=== PATIENT | female | born 1950 | race Caucasian/White ===

== ENCOUNTER → 2018-07-13 12:44 | Outpatient (CLI) | payer MEDICARE, OTHER, SELFPAY | PROVIDERS: Visit Provider Physician Assistant Medical | DX: R07.89 Other chest pain (principal) ==

== ENCOUNTER → 2018-07-15 10:34 | Outpatient (CLI) | payer MEDICARE, OTHER, SELFPAY ==
--- NOTE | 2018-07-15 11:48 | PM.TREADMILL ---
Cardiac Stress Test Report Referral & Results Date Patient Seen: 07/15/18 Time Patient Seen: 11:48 Requesting provider: Rosa Boucher Indication: Chest pain Rest ECG: Unremarkable Procedure Note: Today following both written and verbal informed consent the patient was exercised according to a standard Barrera protocol patient went for a total of 6 min 8 sec achieving a maximum heart rate of 150s (difficult to ascertain because of significant motion artifact during exercise portion of test), maximum systolic blood pressure of 180 for. This is approximately 7.0 METS. Exercise was terminated at this point because of inability the patient to continue. Patient was also given Cardiolite through a previously started Hep-Lock IV by the nuclear auxiliary operator approximately 1 minute prior to the cessation of exercise. With exercise there was a tremendous amount of motion artifact making it extremely difficult to follow even patient's rhythm let alone any subtle ST segment changes. Medially upon cessation of motion there is no evidence of ST segment change when the ECG settled down. Functional aerobic impairment rated about minus 5-10% on the sedentary scale or better than average Occasional PACs and some sinus arrhythmia were noted in recovery Impression: No evidence of ischemia based on usual criteria although motion artifact encountered makes use of the ECG very difficult. Perfusion imaging to be reported separately. Please note: Actual ECG tracings can be found in the PACS system.
--- NOTE | 2018-07-19 13:16 | DI.NM.S_ITS ---
DATE OF SERVICE: 07/15/2018 PROCEDURE: Exercise perfusion study. INDICATIONS: Exertional chest pain, hyperlipidemia, very strong family history of coronary artery disease, sleep apnea, et cetera. RADIOPHARMACEUTICAL: 27.2 mCi technetium-99m Myoview IV was injected at stress, and 24.8 mCi technetium-99m Myoview IV was injected at rest. CARDIAC STRESS: Patient underwent exercise perfusion study under the supervision of an attending staff. She walked on Barrera protocol for 6 minutes 8 seconds and achieved 87% of target heart rate and normal blood pressure response. Baseline rhythm was sinus with some sinus arrhythmias. During stress, there was profound EKG artifact. However, in immediate recovery, there were no obvious significant ischemic changes. There were intermittent PACs and PVCs seen in recovery. No sustained ventricular or supraventricular arrhythmias. Test was discontinued as she was unable to walk on treadmill. Functional aerobic impairment 0% on active scale. RAW DATA: There was increased subdiaphragmatic activity. Breast shadow was seen as well. GATED STUDY: Resting LV ejection fraction 68% and stress LV ejection fraction 64% with decreased perfusion in inferior wall. TID ratio was 0.83, which was within normal limits. Resting end-diastolic volume was 106 mL. Resting heart ratio was 0.4, which is within normal limits. MYOCARDIAL PERFUSION SCAN: Stress supine, resting supine, and stress prone images were compared to each other. Resting supine images revealed minimally decreased perfusion of distal anterior wall which got resolved during prone images, suggestive of breast tissue attenuation artifact. However, during stress supine and stress prone images, there was hcypo-gl-sajkyuiw-sized reversible perfusion defect seen involving base to mid inferior wall extending into the distal inferolateral wall, consistent with reversible ischemia. CONCLUSION: This is an abnormal myocardial perfusion study, consistent with rjfcd-az-ujjfvxye-sized reversible ischemia of base-to-mid inferior wall extending into the distal inferolateral wall. Resting LV ejection fraction 68% and stress LV ejection fraction 64%. findings were reported to ordering team. Teresa Murillo - FUND CONTROLLER/fn/kv doc#: [id number]/job#: [id number] dd: 07/19/2018 12:48:00 dt: 07/19/2018 13:06:00 DICTATING MD/COPIES TO: Alan Wing MD ; LAZARUS Rees COPIES MNE: ANASTACIO ; GERRY
== END ==
PROVIDERS: Visit Provider Physician Assistant Medical
DX: R07.89 Other chest pain (principal)
CPT/HCPCS: 78452; 93016; 93017; 93018; A9502

== ENCOUNTER → 2018-08-26 07:42 | Outpatient (CLI) | payer MEDICARE, OTHER, SELFPAY ==
--- NOTE | 2018-08-26 | DI.MG.S_ITS ---
BILATERAL DIGITAL SCREENING MAMMOGRAM 3D/2D WITH CAD: 08/26/2018 Comparison is made to exams dated: 11/04/2016 mammogram, 01/06/2015 mammogram, and 12/23/2012 mammogram - [facility]. The tissue of both breasts is predominantly fatty. Current study was also evaluated with a Computer Aided Detection (CAD) system. No significant masses, calcifications, or other findings are seen in either breast. There has been no significant interval change. IMPRESSION: NEGATIVE There is no mammographic evidence of malignancy. A 1 year screening mammogram is recommended. This exam was interpreted at Station ID: [id number]. NOTE: For mammograms, a report in lay terms will be sent to the patient. Approximately 15% of breast malignancies will not be visualized mammographically. In the management of a palpable breast mass, a negative mammogram must not discourage biopsy of a clinically suspicious lesion. Electronically Signed By: Radha edwards/césar:08/26/2018 11:47:33 letter sent: Normal Exam ACR BI-RADS Category 1: Negative 3341F
== END ==
PROVIDERS: PCP Physician Assistant Medical; Visit Provider Physician Assistant Medical
DX: Z12.31 Encounter for screening mammogram for malignant neoplasm of breast (principal)
CPT/HCPCS: 77063; 77067

== ENCOUNTER → 2019-08-04 12:28 | Outpatient (CLI) | payer MEDICARE, OTHER, SELFPAY | PROVIDERS: PCP Physician Assistant Medical | DX: Z23 Encounter for immunization (principal) | CPT/HCPCS: 90471; 90686 ==

== ENCOUNTER → 2020-04-05 12:55 | Outpatient (CLI) | payer MEDICARE, OTHER, SELFPAY ==
--- NOTE | 2020-04-05 | DI.MG.S_ITS ---
BILATERAL DIGITAL SCREENING MAMMOGRAM 3D/2D WITH CAD: 04/05/2020 CLINICAL: Routine screening. Comparison is made to exams dated: 08/26/2018 mammogram - [facility], 11/04/2016 mammogram, 01/06/2015 mammogram, and 12/23/2012 mammogram - [facility]. The tissue of both breasts is predominantly fatty. Current study was also evaluated with a Computer Aided Detection (CAD) system. No significant masses, calcifications, or other findings are seen in either breast. There has been no significant interval change. IMPRESSION: NEGATIVE There is no mammographic evidence of malignancy. A 1 year screening mammogram is recommended. This exam was interpreted at Station ID: [id number]. NOTE: For mammograms, a report in lay terms will be sent to the patient. Approximately 15% of breast malignancies will not be visualized mammographically. In the management of a palpable breast mass, a negative mammogram must not discourage biopsy of a clinically suspicious lesion. Electronically Signed By: Shawn hansen/césar:04/05/2020 14:10:15 letter sent: Normal Exam ACR BI-RADS Category 1: Negative 3341F
== END ==
PROVIDERS: PCP Physician Assistant Medical; Referring Provider Physician Assistant Medical; Visit Provider Physician Assistant Medical
DX: Z12.31 Encounter for screening mammogram for malignant neoplasm of breast (principal)
CPT/HCPCS: 77063; 77067

== ENCOUNTER → 2021-10-10 11:14 | Outpatient (CLI) | payer MEDICARE, OTHER, SELFPAY ==
--- NOTE | 2021-10-10 11:16 | DI.MG.S_ITS ---
BILATERAL DIGITAL SCREENING MAMMOGRAM 3D/2D WITH CAD: 10/10/2021 CLINICAL: Routine screening. Comparison is made to exams dated: 04/05/2020 mammogram, 08/26/2018 mammogram - [facility], and 11/04/2016 mammogram - [facility]. There are scattered fibroglandular elements in both breasts. Current study was also evaluated with a Computer Aided Detection (CAD) system. No significant masses, calcifications, or other findings are seen in either breast. There has been no significant interval change. IMPRESSION: NEGATIVE There is no mammographic evidence of malignancy. A 1 year screening mammogram is recommended. This exam was interpreted at Station ID: [id number]. NOTE: For mammograms, a report in lay terms will be sent to the patient. Approximately 15% of breast malignancies will not be visualized mammographically. In the management of a palpable breast mass, a negative mammogram must not discourage biopsy of a clinically suspicious lesion. Electronically Signed By: Joni adrian/césar:10/10/2021 11:54:03 letter sent: Normal Exam ACR BI-RADS Category 1: Negative 3341F
== END ==
PROVIDERS: PCP Physician Assistant Medical; Referring Provider Physician Assistant Medical; Visit Provider Physician Assistant Medical
DX: Z12.31 Encounter for screening mammogram for malignant neoplasm of breast (principal)
CPT/HCPCS: 77063; 77067

== ENCOUNTER → 2022-11-07 09:10 | Outpatient (CLI) | payer MEDICARE, OTHER, SELFPAY ==
--- NOTE | 2022-11-07 | DI.MG.S_ITS ---
BILATERAL DIGITAL SCREENING MAMMOGRAM 3D/2D WITH CAD: 11/07/2022 CLINICAL: Routine screening. Comparison is made to exams dated: 10/10/2021 mammogram, 04/05/2020 mammogram, 08/26/2018 mammogram - [facility], and 11/04/2016 mammogram - [facility]. There are scattered areas of fibroglandular density in both breasts (category b / 25%-50% glandular tissue). Current study was also evaluated with a Computer Aided Detection (CAD) system. No significant masses, calcifications, or other findings are seen in either breast. There has been no significant interval change. IMPRESSION: NEGATIVE There is no mammographic evidence of malignancy. A 1 year screening mammogram is recommended. Based on the Tyrer Cuzick model (a risk assessment model) the patient's lifetime risk is 3.3% and her 10 year risk is 2.7%. According to the ACR, ACS, and NCCN guidelines, an annual breast MRI exam along with mammogram is recommended if the patient's lifetime risk is 20% or greater. This exam was interpreted at Station ID: [id number]. NOTE: For mammograms, a report in lay terms will be sent to the patient. Approximately 15% of breast malignancies will not be visualized mammographically. In the management of a palpable breast mass, a negative mammogram must not discourage biopsy of a clinically suspicious lesion. Electronically Signed By: Shawn hansen/césar:11/11/2022 07:59:24 letter sent: Normal Exam ACR BI-RADS Category 1: Negative 3341F
== END ==
PROVIDERS: PCP Physician Assistant Medical; Referring Provider Physician Assistant Medical; Visit Provider Physician Assistant Medical
DX: Z12.31 Encounter for screening mammogram for malignant neoplasm of breast (principal)
CPT/HCPCS: 77063; 77067

== ENCOUNTER → 2023-07-23 09:25 | Outpatient (CLI) | payer MEDICARE, OTHER, SELFPAY ==
[2023-07-23 10:43] LABS: Add Manual Diff / Slide Review NO; Basophils Absolute Auto 0 /uL (0-100); Basophils Percent Auto 0.4 % (0-2); Eosinophils Absolute Auto 100 /uL (0-450); Eosinophils Percent Auto 2.2 % (2-4); Hematocrit 39.7 % (36-46); Hemoglobin 13.9 g/dL (12.0-16.0); Lymphocytes Absolute Auto 1600 /uL (1100-4500); Lymphocytes Percent Auto 29.3 % (25-40); Mean Corpuscular Hemoglobin 32.1 PG (26-34); Mean Corpuscular Volume 91.9 fL (80-100); Monocytes Absolute Auto 500 /uL (0-900); Monocytes Percent Auto 9.9 % (3-14); Neutrophils Absolute Auto 3200 /uL (1500-7000); Neutrophils Percent Auto 58.2 % (50-75); Platelet Count 367 X10^3/uL (150-400); Red Blood Cell Count 4.32 X10^6/uL (4.0-5.2); Red Cell Distribution Width 13.7 % (11.6-14.8); White Blood Cell Count 5.4 X10^3/uL (4.5-11.0)
[2023-07-23 10:48] LABS: BUN Creatinine Ratio 16.1 (6-22); Blood Urea Nitrogen 14 mg/dL (7-17); Calcium 9.8 mg/dL (8.4-10.2); Carbon Dioxide 24 mmol/L (22-32); Chloride 106 mmol/L (98-107); Estimated Glomerular Filt Rate > 60 mL/min (>60); Glucose 111 mg/dL (80-110); HEMOLYSIS < 15 (0-50); Potassium 4.1 mmol/L (3.4-5.1); Sodium 138 mmol/L (137-145)
[2023-07-23 11:48] LABS: Appearance Urine UA CLOUDY; Bilirubin Urine UA NEGATIVE (NEGATIVE); Color Urine UA YELLOW; Glucose Urine UA NEGATIVE (Negative); Ketones Urine UA TRACE (NEGATIVE); Leukocyte Esterase Urine UA NEGATIVE (NEGATIVE); Nitrite Urine UA NEGATIVE (Negative); Occult Blood Urine UA NEGATIVE (Negative); Protein Urine UA NEGATIVE (Negative); Specific Gravity Urine UA >=1.030 (1.000-1.035); Urobilinogen Urine UA 0.2 E.U./dL (0.2)
[2023-07-23 12:16] LABS: pH Urine UA 5.5 (4.5-8.0)
[2023-07-23 12:23] LABS: Amorphous Sediment Urine 3+; Bacteria Urine None Seen; Calcium Oxalate Crystals Urine Few; Culture Indicated Urine Cult Not Indicated; RBC Urine None Seen (0-5/HPF); Squamous Epithelial Cell Urine 0-1 /HPF (0-5/HPF); WBC Urine None Seen (0-5/HPF)
== END ==
PROVIDERS: PCP Physician Assistant Medical; Referring Provider Orthopaedic Surgery; Visit Provider Orthopaedic Surgery
DX: Z01.818 Encounter for other preprocedural examination (principal); Z01.812 Encounter for preprocedural laboratory examination; N39.0 Urinary tract infection, site not specified
CPT/HCPCS: 36415; 80048; 81001; 85025; 93005; 93010

== ENCOUNTER → 2023-08-07 13:35 | Outpatient (CLI) | payer MEDICARE, OTHER, SELFPAY ==
--- NOTE | 2023-08-07 | DI.CT.S_ITS ---
PROCEDURE: CT UE RT WO CON INDICATIONS: Primary osteoarthritis, right shoulder TECHNIQUE: Noncontrast 1-1.5 mm thick sections acquired from the acromioclavicular joint to the inferior scapula, with coronal and sagittal reformatting. COMPARISON: [facility] Outside Film, MR, MR SHOULDER RIGHT WITHOUT CONTRAST, 07/04/2023, 8:43. FINDINGS: Image quality: Excellent. Bones: Moderate acromioclavicular joint osteoarthritic changes are seen with significant joint space narrowing, subchondral sclerosis and marginal osteophyte formation depressing the musculotendinous junction of supraspinatus. There is slight superior migration of humeral head in relation to the glenoid. Moderate glenohumeral joint osteoarthritic changes also seen. No acute fracture or dislocation. No suspicious bony lesions. The visualized right upper ribs are intact. Soft tissues: There is markedly attenuated appearance of the supraspinatus tendon consistent with MRI finding of high-grade partial tear. Sagittal views shows mild supraspinatus muscle atrophy. No abnormal soft tissue calcifications. No significant joint effusion or intra-articular loose bodies. No axillary lymphadenopathy by size criteria. Visualized right lung field is clear. IMPRESSION: 1. Moderate acromioclavicular joint and glenohumeral joint osteoarthritis. No acute fracture or dislocation. No suspicious bony lesions. Superior migration of humeral head in relation to glenoid. 2. High-grade partial tear involving distal supraspinatus tendon better evaluated on previous outside MR study. No significant muscle atrophy. No abnormal soft tissue calcifications. No significant joint effusion or calcified intra-articular loose bodies. Dictated by: Frank Smith M.D. on 08/07/2023 at 15:32 Approved by: Frank Smith M.D. on 08/07/2023 at 15:40
== END ==
PROVIDERS: PCP Physician Assistant Medical; Referring Provider Orthopaedic Surgery; Visit Provider Orthopaedic Surgery
DX: M19.011 Primary osteoarthritis, right shoulder (principal); M75.111 Incomplete rotator cuff tear or rupture of right shoulder, not specified as traumatic
CPT/HCPCS: 73200